=== PATIENT | male | born 1980 | race Caucasian/White ===

== ENCOUNTER 2018-07-19 21:35 | Emergency (ER) | payer OTHER ==
[~2018-07-19] VITALS: Ht 175.3 cm; Wt 110.0 kg
[2018-07-19 21:45] VITALS: Ht 175.3 cm; Wt 110.0 kg
[2018-07-19] MEDS ORDERED: FAMOTIDINE 20 MG INJ IV STA (23:46)
[2018-07-19] MEDS ORDERED: LIDOCAINE/MYLANTA 40 ML BTL PO STA (23:46)
[2018-07-19] MEDS ORDERED: SOD CHLORIDE 0.9% 1,000 ML IV STA (23:46)
[2018-07-19] MEDS ORDERED: ONDANSETRON 4 MG INJ IV STA (23:46)
[2018-07-19] MEDS ORDERED: morphine 4 MG/ML VIAL IV STA (23:46)
[2018-07-19] MEDS ORDERED: BELLADONNA/PHENOBARBITAL TAB PO STA (23:46)
[2018-07-20] MEDS ORDERED: AZIT250T PO (01:35)
[2018-07-20] MEDS ORDERED: UDMYL PO (01:35)
[2018-07-20] MEDS ORDERED: FAMO40TA5 PO (01:35)
--- NOTE | 2018-07-20 01:37 | ERD ---
ER Documentation Chief Complaint Chief Complaint BIBA for AP n/v HPI 38-year-old male is here with abdominal pain in the epigastric region. He has a history of gastritis in which he takes Zantac for. Symptoms are worse after eating. They have been going on for about 3 weeks now but worse the past day. No fever. Also mild cough. No diarrhea. No vomiting. ROS All systems reviewed and are negative except as per history of present illness. Medications Home Meds Active Scripts Azithromycin* (Zithromax*) 250 Mg Tablet, 250 MG PO .ZPACK DIRECTED, #6 TAB TAKE 500 MG (2 TABS) THE FIRST DAY THEN 250 MG (1 TAB) DAYS 2-5 Prov:AXEL LYLE PA-C 07/20/18 Magaldrate/Simethicone* (Mag-Al Plus Suspension*) 30 Ml Oral.susp, 30 ML PO Q6H PRN for GASTROINTESTINAL UPSET for 5 Days, ML Prov:AXEL LYLE PA-C 07/20/18 Famotidine* (Famotidine*) 40 Mg Tablet, 40 MG PO BID, #30 TAB Prov:AXEL LYLE PA-C 07/20/18 Allergies Allergies: Coded Allergies: No Known Allergy (Unverified , 06/27/13) PMhx/Soc Medical and Surgical Hx: pt denies Medical Hx, pt denies Surgical Hx Hx Alcohol Use: Yes (4 BEERS DAILY) Hx Substance Use: No Hx Tobacco Use: No Smoking Status: Never smoker FmHx Family History: No diabetes Physical Exam Vitals Vital Signs Date Temp Pulse Resp B/P (MAP) Pulse Ox O2 O2 Flow FiO2 Time Delivery Rate 07/19/18 98.7 80 20 160/89 99 21:45 (112) Physical Exam INITIAL VITAL SIGNS: Reviewed by me GENERAL: Awake, alert and oriented x 4, well appearing, nontoxic, speaking in full sentences. No acute distress HEAD: Atraumatic NECK: Supple. No masses. Full range of motion. No meningismus. No midline tenderness. EYES: EOMI. PERRL. EAR: No tenderness over the mastoids bilaterally. No exudates in the canals. TMs nonerythematous. NOSE: Normal nose. THROAT: No tonilar erythema or edema. No exudates. Uvula midline. No kissing tonsils. RESPIRATORY: Clear to auscultation bilaterally. Symmetric chest wall rise. No wheezing or rales. No accessory muscle use. CV: Regular rate and rhythm. No murmurs, rubs, or gallops. ABDOMEN: Soft, non-distended. Nontender. Negative Victoria. Negative McBurneys point tenderness. No CVA tenderness bilaterally. No guarding. No rebound. : Deffered. Result Diagram: 07/19/18 2356 07/19/18 2357 Results 24 hrs Laboratory Tests Test 07/19/18 23:54 07/19/18 23:59 Urine Color YELLOW Urine Clarity CLEAR Urine pH 7.0 Urine Specific [place] 1.023 Urine Ketones 1+ mg/dL Urine Nitrite NEGATIVE mg/dL Urine Bilirubin NEGATIVE mg/dL Urine Urobilinogen 1+ mg/dL Urine Leukocyte Esterase NEGATIVE Donaldo/ul Urine Microscopic RBC 1 /HPF Urine Microscopic WBC 2 /HPF Urine Mucus FEW /HPF Urine Hemoglobin NEGATIVE mg/dL Urine Glucose NEGATIVE mg/dL Urine Total Protein 1+ mg/dl White Blood Count 19.5 10^3/ul Red Blood Count 6.13 10^6/ul Hemoglobin 16.7 g/dl Hematocrit 51.3 % Mean Corpuscular Volume 83.7 fl Mean Corpuscular Hemoglobin 27.2 pg Mean Corpuscular Hemoglobin Concent 32.6 g/dl Red Cell Distribution Width 13.7 % Platelet Count 298 10^3/UL Mean Platelet Volume 10.1 fl Immature Granulocytes % 0.600 % Neutrophils % 84.5 % Lymphocytes % 8.6 % Monocytes % 5.9 % Eosinophils % 0.0 % Basophils % 0.4 % Nucleated Red Blood Cells % 0.0 /100WBC Immature Granulocytes # 0.120 10^3/ul Neutrophils # 16.4 10^3/ul Lymphocytes # 1.7 10^3/ul Monocytes # 1.2 10^3/ul Eosinophils # 0.0 10^3/ul Basophils # 0.1 10^3/ul Nucleated Red Blood Cells # 0.0 10^3/ul Sodium Level 145 mmol/L Potassium Level 3.6 mmol/L Chloride Level 100 mmol/L Carbon Dioxide Level 28 mmol/L Anion Gap 17 Blood Urea Nitrogen 12 mg/dl Creatinine 1.09 mg/dl Est Glomerular Filtrat Rate mL/min > 60 mL/min Glucose Level 135 mg/dl Calcium Level 9.3 mg/dl Total Bilirubin 0.6 mg/dl Direct Bilirubin 0.00 mg/dl Indirect Bilirubin 0.6 mg/dl Aspartate Amino Transf (AST/SGOT) 57 IU/L Alanine Aminotransferase (ALT/SGPT) 59 IU/L Alkaline Phosphatase 141 IU/L Total Protein 8.2 g/dl Albumin 4.8 g/dl Globulin 3.40 g/dl Albumin/Globulin Ratio 1.41 Lipase 123 U/L Current Medications Medications Dose Sig/Bree Start Time Status Last (Trade) Ordered Route PRN Stop Time Admin Dose Reason Admin Sodium 1,000 ml @ Q1H STAT 07/19/18 DC 07/20/18 Chloride 1,000 mls/hr IV 23:46 00:16 07/20/18 00:45 Morphine 4 mg ONCE STAT 07/19/18 DC 07/20/18 Sulfate IV 23:46 00:16 (morphine) 07/19/18 23:48 Ondansetron 4 mg ONCE STAT 07/19/18 DC 07/20/18 HCl (Zofran IV 23:46 00:16 Inj) 07/19/18 23:48 Famotidine 20 mg ONCE STAT 07/19/18 DC 07/20/18 (Pepcid Iv) IV 23:46 00:16 07/19/18 23:48 40 ml ONCE STAT 07/19/18 DC 07/20/18 Miscellaneous PO 23:46 00:11 Medication 07/19/18 23:48 (Gi Cocktail (2)) Belladonna/ 2 tab ONCE STAT 07/19/18 DC 07/20/18 Phenobarbital PO 23:46 00:16 () 07/19/18 23:48 Procedures/MDM The differential diagnosis includes but is not limited to appendicitis, cholelithiasis, cholecystitis, pancreatitis, hepatitis, gastritis, peptic ulcer disease, bowel obstruction, diverticulitis, renal disease including stones, torsion, AAA, pyelonephritis, and others. Labs ordered and his white blood cell count was elevated at 19. Therefore a CT scan was ordered which showed 1. Enlarged fatty liver. 2. Interval increase in size of a peripherally calcified centrally hypodense right adrenal mass. Although this may represent an adenoma, correlation with a multiphasic CT examination or MRI is recommended when clinically appropriate. 3. No evidence for bowel obstruction or ileus. 4. No evidence for appendicitis or diverticulitis. 5. Ill-defined small left lower lobe infiltrate. 6. Mild wedge deformity lower thoracic spine vertebral bodies, similar to the partially visualized lower thoracic spine vertebral bodies from the prior study of 2013, all likely chronic. 7. Degenerative changes of the lower lumbar spine. Results were discussed with the patient. He was given copy of the results we can follow-up with primary care. He was treated with azithromycin for the pneumonia which was seen on his CT scan and also given Mylanta and Pepcid. Patient counseled regarding my diagnostic impression and care plan. Prior to discharge all questions answered. Pt agrees with treatment plan and understands strict return precautions. Pt is instructed to follow up with primary care provider within 24-48 hours. Precautionary instructions provided including instructions to return to the ER if not improving or for any worsening or nnamdi nging symptoms or concerns. Departure Diagnosis: Primary Impression: Pneumonia Additional Impression: Abdominal pain Condition: Stable Patient Instructions: Abdominal Pain Additional Instructions: Call your primary care doctor TOMORROW for an appointment during the next 1-2 days.See the doctor sooner or return here if your condition worsens before your appointment time. AXEL LYLE PA-C Jul 20, 2018 01:37
[2018-07-20 02:03] VITALS: BP 131/76; PULSE 72; RESP 18
== END 2018-07-20 02:05 | disposition home or self-care (01) ==
LOC: FTE 21:35
DX: J18.9 Pneumonia, unspecified organism (principal); R10.9 Unspecified abdominal pain
CPT/HCPCS: 36415; 74176; 80053; 81001; 83690; 85025; 96374; 96375; 99285; J2270; J2405; J7030